=== PATIENT | female | born 2000 | race African-American/Black ===

== ENCOUNTER 2020-10-27 22:34 | Emergency (ER) | payer SELFPAY | END 2020-10-27 23:15 | disposition home or self-care (01) | LOC: CSHERS 22:34 | DX: L02.411 Cutaneous abscess of right axilla (principal) | CPT/HCPCS: 10060 ==

== ENCOUNTER 2021-07-01 11:52 | Day surgery (SDC) | payer BC, SELFPAY | END 2021-07-01 13:58 | disposition home or self-care (01) | LOC: CSHSDC/OP 11:52 | PROVIDERS: ATTEND Physician Assistant | DX: Z23 Encounter for immunization (principal); U07.1 COVID-19 | CPT/HCPCS: 96365; J3490; M0243; Q0244 ==

== ENCOUNTER 2023-01-12 08:27 | Inpatient (IN) | payer OTHER ==
[2023-01-12 10:03] VITALS: BMI 43.9
[2023-01-12] MEDS ORDERED: hydrALAZINE 20 MG/ML VIAL SLOW IVP PRN ×2 (10:56→19:12)
[2023-01-12] MEDS ORDERED: fentaNYL 50 mcg/mL 1 mL Vial SLOW IVP PRN (10:56)
[2023-01-12] MEDS ORDERED: Misoprostol 200 MCG TAB PR PRN (10:56)
[2023-01-12] MEDS ORDERED: Methylergonovine 0.2 MG/ML VIAL IM PRN (10:56)
[2023-01-12] MEDS ORDERED: Promethazine HCl 25 MG/ML VIAL IM PRN ×3 (10:56→19:12)
[2023-01-12] MEDS ORDERED: HYDROcodone/Acetaminophen 5/325 mg Tablet PO PRN ×2 (10:56)
[2023-01-12] MEDS ORDERED: Butorphanol Tartrate 1 MG/ML VIAL SLOW IVP PRN (10:56)
[2023-01-12] MEDS ORDERED: Tranexamic Acid 1,000 MG/10 ML VIAL IVP PRN (10:56)
[2023-01-12] MEDS ORDERED: Carboprost 250 MCG/ML AMP IM PRN (10:56)
[2023-01-12] MEDS ORDERED: Lidocaine 1% (PF) 30 ML VIAL SC PRN (10:56)
[2023-01-12] MEDS ORDERED: Acetaminophen 500 MG TAB PO PRN (10:56)
[2023-01-12] MEDS ORDERED: Ibuprofen 800 MG TAB PO PRN (10:56)
[2023-01-12] MEDS ORDERED: Ondansetron PF 4 MG/2 ML Vial IVP PRN ×3 (10:56→19:12)
[2023-01-12] MEDS ORDERED: Diphenoxylate HCl/Atropine Tablet PO PRN ×2 (10:56)
[2023-01-12] MEDS ORDERED: Penicillin G Potassium 5 MILL.UNITS VIAL ONE (10:58)
[2023-01-12] MEDS ORDERED: NS w/ Oxytocin 30 units 500 ML IV SCH ×4 (11:00→19:12)
[2023-01-12] MEDS ORDERED: Lactated Ringer's 1,000 ML IV SCH (11:00)
[2023-01-12] MEDS ORDERED: Penicillin G Potassium 5 MILL.UNITS in Sodium Chloride 0.9% 100 ML IVPB SCH (11:00)
[2023-01-12] MEDS ORDERED: fentaNYL/Ropivacaine Epidural 100 ML ONE (11:34)
[2023-01-12 11:39] LABS: Hemoglobin 11.2 g/dL (12.0-15.5); Mean Corpuscular HGB CONC 31.8 g/dL (32.0-36.0); Mean Corpuscular Hemoglobin 25.7 pg (27.0-33.0); Mean Corpuscular Volume 80.9 fl (81.6-98.3); Mean Platelet Volume 12.4 fl (7.4-10.4); Platelet Count 164 10x3/uL (150-450); RBC Distribution Width 14.6 % (11.5-14.5); Red Blood Cell (RBC) Count 4.35 10x6/uL (3.90-5.03); White Blood Cell (WBC) Count 8.7 10x3/uL (3.5-10.5)
[2023-01-12] MEDS ORDERED: Acetaminophen 325 MG TAB PO PRN (11:42)
[2023-01-12] MEDS ORDERED: diphenhydrAMINE 50 MG/ML VIAL IVP PRN (11:42)
[2023-01-12] MEDS ORDERED: Lactated Ringer's 500 ML IV PRN (11:42)
[2023-01-12] MEDS ORDERED: Moisturizing Cream (Eucerin) 113 GM JAR TOP PRN (11:42)
[2023-01-12] MEDS ORDERED: Naloxone HCl 0.4 mg/ml Vial IVP PRN ×2 (11:42)
[2023-01-12] MEDS ORDERED: ePHEDrine Sulfate 50 MG/10 ML VIAL SLOW IVP PRN (11:42)
[2023-01-12] MEDS ORDERED: Communication Order-Pharmacy FS SCH (11:45)
[2023-01-12] MEDS ORDERED: fentaNYL 2 mcg/Ropivacaine 0.2% Epidural 100 ML CADD EPIDURAL SCH (11:45)
[2023-01-12 12:10] LABS: HBSAg Index 0.13 S/CO (0-0.99); Hep B Surf Ag - L&D Non-Reactive S/CO (NonReactive)
[2023-01-12 12:14] LABS: Syphilis Antibody Nonreactive (Nonreactive); Syphilis Antibody Index 0.07 S/CO (<1.00 Non-Reactive)
[2023-01-12] MEDS ORDERED: Penicillin G 2.5 MILL.units 2.5 MILL.UNITS in Premix Bag 1 BAG IVPB SCH (15:00)
[2023-01-12] MEDS ORDERED: Milk Of Magnesia 30 ML UDCUP PO PRN (19:12)
[2023-01-12] MEDS ORDERED: Benzocaine-Menthol 82.5 ML CAN TOP PRN (19:12)
[2023-01-12] MEDS ORDERED: Bisacodyl 10 MG SUPP PR PRN (19:12)
[2023-01-12] MEDS ORDERED: Lanolin Ointment 7 GM TUBE TOP PRN (19:12)
[2023-01-12] MEDS ORDERED: Misoprostol 200 MCG TAB VAG PRN (19:12)
[2023-01-12] MEDS ORDERED: diphenhydrAMINE 25 MG CAP PO PRN (19:12)
[2023-01-12] MEDS ORDERED: Zolpidem Tartrate 5 MG TAB PO PRN (19:12)
[2023-01-12] MEDS ORDERED: Boostrix 0.5 ML (Tdap) VIAL (>/=7 yrs of age) IM ONE (19:12)
[2023-01-12] MEDS ORDERED: Preparation H Ointment 28 GM TUBE PR PRN (19:12)
[2023-01-12] MEDS ORDERED: Measles/Mumps/Rubella 10 MCG/0.5 ML VIAL SC ONE (19:12)
[2023-01-12] MEDS ORDERED: Varicella virus, LIVE 0.5 ML VIAL SC ONE (19:12)
[2023-01-12] MEDS: Docusate 100 MG CAP PO SCH (21:33)
[2023-01-12] MEDS: Ibuprofen 800 MG TAB PO SCH (21:33)
[2023-01-13] MEDS: HYDROcodone/Acetaminophen 5/325 mg Tablet PO PRN ×4 (03:20→22:42)
[2023-01-13 04:28] LABS: Hemoglobin 9.2 g/dL (12.0-15.5); Mean Corpuscular Hemoglobin 25.9 pg (27.0-33.0); Mean Corpuscular Volume 78.6 fl (81.6-98.3); Mean Platelet Volume 12.2 fl (7.4-10.4); Platelet Count 136 10x3/uL (150-450); RBC Distribution Width 14.4 % (11.5-14.5); Red Blood Cell (RBC) Count 3.55 10x6/uL (3.90-5.03); White Blood Cell (WBC) Count 11.4 10x3/uL (3.5-10.5)
[2023-01-13] MEDS: Ibuprofen 800 MG TAB PO SCH ×3 (06:08→21:50)
[2023-01-13] MEDS: Docusate 100 MG CAP PO SCH ×2 (09:13→21:50)
[2023-01-13] MEDS: Prenatal Vitamin 1 TAB PO SCH (09:13)
[2023-01-13] MEDS: Ferrous Sulfate 325 MG TAB PO SCH ×2 (09:13→18:39)
[2023-01-14] MEDS: Ibuprofen 800 MG TAB PO SCH (06:08)
[2023-01-14 08:07] VITALS: BP 131/70; TEMP 98
[2023-01-14] MEDS: Docusate 100 MG CAP PO SCH (08:37)
[2023-01-14] MEDS: Ferrous Sulfate 325 MG TAB PO SCH (08:37)
[2023-01-14] MEDS: HYDROcodone/Acetaminophen 5/325 mg Tablet PO PRN (08:37)
[2023-01-14] MEDS: Prenatal Vitamin 1 TAB PO SCH (08:37)
== END 2023-01-14 14:20 | disposition home or self-care (01) | DRG 807 ==
LOC: CSHERS 08:27 → CSHLD 09:49 → CSHPP 19:45
PROVIDERS: ADMIT Obstetrics & Gynecology; ATTEND Obstetrics & Gynecology
PROC: 10E0XZZ Delivery of Products of Conception, External Approach (ICD-10-PCS; principal; 2023-01-11)
DX: O71.82 Other specified trauma to perineum and vulva (principal); Z37.0 Single live birth; O70.0 First degree perineal laceration during delivery; Z3A.39 39 weeks gestation of pregnancy
CPT/HCPCS: 36415; 51702; 85027; 86780; 86850; 86900; 86901; 87340; 99285; J2540

== ENCOUNTER 2023-02-07 11:27 | Emergency (ER) | payer BC, OTHER ==
[2023-02-07 12:28] LABS: Bilirubin Neg (Negative); Blood, Urine 250 (Negative); Clarity Slightly Cloudy (Clear); Glucose, Urine (Dipstick) Normal (Negative); Ketone, Urine Negative (Negative); Leukocyte 500 (Negative); Nitrite Negative (Negative); Protein, Urine (Dipstick) 30 mg/dl (Neg-Trace); Urobilinogen Normal mg/dL (Less than 2); pH, Urine 6.5 (5.0-9.0)
[2023-02-07 12:34] LABS: Bacteria/HPF Rare-Few HPF (None Seen); CAUTI Indications for Culture Pelvic or flank pain; RBC/HPF 21-50 HPF (0-3); WBC/HPF 21-50 HPF (0-3)
[2023-02-07 12:35] LABS: Urine Culture Reflex Yes Yes
[2023-02-07 12:36] LABS: Pregnancy Test - Urine (BHCG) Negative (Negative); Pregu Control Background? CLEAR/WHITE (CLR/WHITE); Pregu Control Bar Appear? YES (CONTROL BAR)
[2023-02-07 12:38] LABS: Hemoglobin 10.9 g/dL (12.0-15.5); MDiff Complete? YES; Mean Corpuscular HGB CONC 31.6 g/dL (32.0-36.0); Mean Corpuscular Hemoglobin 25.3 pg (27.0-33.0); Mean Platelet Volume 12.6 fl (7.4-10.4); Platelet Count 169 10x3/uL (150-450); RBC Distribution Width 13.3 % (11.5-14.5); Red Blood Cell (RBC) Count 4.31 10x6/uL (3.90-5.03); White Blood Cell (WBC) Count 7.3 10x3/uL (3.5-10.5)
[2023-02-07 12:49] LABS: ALT (SGPT) 11 U/L (8-55); AST (SGOT) 14 U/L (5-34); Albumin 4.1 g/dL (3.5-5.0); Alkaline Phosphatase 109 U/L (40-110); Anion Gap 14 mmol/L (10-20); BUN (Urea Nitrogen) 9 mg/dL (7.0-18.7); Bilirubin, Total 0.5 mg/dL (0.2-1.2); Calc. Creatinine Clearance 0 mL/min (70-130); Carbon Dioxide 24 mmol/L (22-29); Chloride 107 mmol/L (98-107); Estimated GFR 89; Globulin 3.1 g/dL (2.4-3.5); Glucose 82 mg/dL (70-105); Potassium 3.9 mmol/L (3.5-5.1); Protein, Total 7.2 g/dL (6.0-8.3); Sodium 141 mmol/L (136-145)
[2023-02-07] MEDS ORDERED: Acetaminophen 500 MG TAB ONE (13:08)
[2023-02-07] MEDS ORDERED: Ibuprofen 200 MG TAB ONE (13:08)
[2023-02-07 14:57] LABS: Band 1 % (5-11); Eosinophils 4 % (0-10); Lymphocytes 31 % (21-51); Monocytes 9 % (0-10); Neutrophil 52 % (42-75); Reactive Lymphocytes 2 % (0-10)
[2023-02-07 14:58] LABS: Anisocytosis SLIGHT = 6-15 cells (100X) (0-5/hpf); Giant Platelets SLIGHT HPF (0-5); Hypochromia SLIGHT = 6-15 cells (100X) (0-5/hpf); Large Platelets SLIGHT (None Seen); Microcytosis SLIGHT = 6-15 cells (100X) (0-5/hpf); Platelet Adequacy Comment Appears Adequate
== END 2023-02-07 17:48 | disposition home or self-care (01) ==
LOC: CSHERS 11:27
DX: N93.9 Abnormal uterine and vaginal bleeding, unspecified (principal); N85.8 Other specified noninflammatory disorders of uterus
CPT/HCPCS: 36415; 76856; 80053; 81001; 81025; 85025; 87086

== ENCOUNTER 2024-05-16 23:33 | Emergency (ER) | payer BC | END 2024-05-16 23:59 | disposition home or self-care (01) | LOC: CSHERS 23:33 | DX: H10.9 Unspecified conjunctivitis (principal); I10 Essential (primary) hypertension | CPT/HCPCS: 99283 ==

== ENCOUNTER 2024-05-31 19:44 | Emergency (ER) | payer BC ==
[2024-05-31 20:21] LABS: Bilirubin Neg (Negative); Blood, Urine 150 (Negative); Clarity Clear (Clear); Glucose, Urine (Dipstick) Normal (Negative); Ketone, Urine Negative (Negative); Leukocyte 500 (Negative); Nitrite Negative (Negative); Pregnancy Test - Urine (BHCG) Negative (Negative); Pregu Control Background? CLEAR/WHITE (CLR/WHITE); Pregu Control Bar Appear? YES (CONTROL BAR); Protein, Urine (Dipstick) 30 mg/dl (Neg-Trace); Urobilinogen Normal mg/dL (Less than 2)
[2024-05-31 20:28] LABS: Bacteria/HPF Rare-Few HPF (None Seen); CAUTI Indications for Culture Pelvic or flank pain; Squamous Epithelial 0-3 HPF (0-3); WBC/HPF 21-50 HPF (0-3)
[2024-05-31 20:30] LABS: Urine Culture Reflex Yes Yes
[2024-05-31] MEDS ORDERED: Ketorolac Tromethamine 30 MG (1 mL) VIAL ONE (20:37)
[2024-05-31] MEDS ORDERED: Ondansetron ODT 4 MG TAB ONE (20:37)
[2024-05-31 20:59] LABS: #Basophils 0.05 10x3/uL (0.0-0.2); #Monocytes 0.62 10x3/uL (0.0-1.1); #Neutrophils 4.23 10x3/uL (1.5-8.4); %Basophils 0.6 % (0.0-2.0); %Eosinophils 2.5 % (0.0-6.0); %Lymphocytes 35.3 % (18.0-47.0); %Monocytes 7.8 % (0.0-10.0); %Neutrophils 53.7 % (40.0-75.0); Hematocrit 41.5 % (34.9-44.5); Hemoglobin 13.2 g/dL (12.0-15.5); Mean Corpuscular HGB CONC 31.8 g/dL (32.0-36.0); Mean Corpuscular Volume 81.7 fL (81.6-98.3); Mean Platelet Volume 11.5 fL (7.4-10.4); Platelet Count 238 10x3/uL (150-450); RBC Distribution Width 12.9 % (11.5-14.5); Red Blood Cell (RBC) Count 5.08 10x6/uL (3.90-5.03); White Blood Cell (WBC) Count 7.9 10x3/uL (3.5-10.5)
[2024-05-31 21:13] LABS: ALT (SGPT) 14 U/L (8-55); AST (SGOT) 16 U/L (5-34); Albumin 4.5 g/dL (3.5-5.0); Alkaline Phosphatase 91 U/L (40-110); Anion Gap 18 mmol/L (10-20); BUN (Urea Nitrogen) 17 mg/dL (7.0-18.7); Bilirubin, Total 0.4 mg/dL (0.2-1.2); Calc. Creatinine Clearance 0 mL/min (70-130); Calcium 10.7 mg/dL (7.8-10.44); Carbon Dioxide 20 mmol/L (22-29); Chloride 101 mmol/L (98-107); Estimated GFR 84; Globulin 4.5 g/dL (2.4-3.5); Glucose 68 mg/dL (70-105); Lipase 14 U/L (8-78); Potassium 4.2 mmol/L (3.5-5.1); Sodium 135 mmol/L (136-145)
[2024-05-31] MEDS ORDERED: Cephalexin 250 MG CAP ONE (22:01)
== END 2024-05-31 22:12 | disposition home or self-care (01) ==
LOC: CSHERS 19:44
DX: N39.0 Urinary tract infection, site not specified (principal); I10 Essential (primary) hypertension; Z55.6 Problems related to health literacy
CPT/HCPCS: 36415; 74176; 80053; 81001; 81025; 83690; 85025; 87077; 87086; 87186; 96374; J1885; Q0162